=== PATIENT | female | born 2000 | race Caucasian/White ===

== ENCOUNTER 2020-12-18 12:23 | Emergency (ER) | payer OTHER, SELFPAY ==
--- NOTE | 2020-12-18 12:31 | ED.URI ---
HPI - URI/Sore Throat General Chief Complaint: Upper Respiratory Infection Stated Complaint: Body Aches,Headache,Sore Throat,Fever Time Seen by Provider: 12/18/20 12:31 Source: patient and RN notes reviewed Mode of arrival: ambulatory Limitations: no limitations History of Present Illness HPI Narrative: 20-year-old female presents to the [facility] with complaints of body aches, headache, sore throat and fever. Reports a sore throat that started yesterday. Is concerned for strep. Has had fatigue. States that she felt feverish last night but did not check her temperature. Had a 99 temperature this morning. No chest pain or abdominal pain. Denies any shortness of breath. Has taken NyQuil/DayQuil MD elicited complaint: sore throat Related Data Home Medications Medication Instructions Recorded Confirmed norethindrone-e.estradiol-iron 1 tablet PO DAILY 12/18/20 12/18/20 [Aurovela Fe 1-20 (28)] Allergies Allergy/AdvReac Type Severity Reaction Status Date / Time No Known Allergies Allergy Verified 07/15/16 15:41 Review of Systems Review of Systems: All systems reviewed & are unremarkable except as noted in HPI and below Constitutional: Constitutional: Reports as per HPI and Reports chills Eyes: Eyes: Reports no additional eye complaints ENT: Reports as per HPI and Reports sore throat Cardiovascular: Cardiovascular: Reports no additional cardiovascular complaints and Denies chest pain Respiratory: Respiratory: Reports no additional respiratory complaints, Denies cough and Denies dyspnea Gastrointestinal: Gastrointestinal: Reports no additional gastrointestinal complaints, Denies abdominal pain, Denies nausea and Denies vomiting Musculoskeletal: Musculoskeletal: Reports as per HPI and Reports myalgias Integumentary/Breasts: Skin/Breast: Reports system reviewed and no additional complaints, except as docu Neurologic: Reports system reviewed and no additional complaints, except as documented Psychiatric: Psychiatric: Reports no additional psychiatric complaints Allergic/Immunologic: Allergic/Immunologic: Reports no additional allergic/immunologic complaints PMFSH Past Medical History Medical History (Updated 12/18/20 @ 19:11 by Umm Renae) Patient denies significant medical history Surgical History Surgical History (Updated 12/18/20 @ 19:11 by Umm Renae) No significant past surgical history Social History Social History (Updated 12/18/20 @ 19:12 by Umm Renae) Smoking status: Never smoker Alcohol intake: never Occupation/Education: student Gender identity (if verbalized by the patient): Female Comments At the time of my signature, I reviewed and agree with the nursing past medical, surgical, social, and family history. There is no relevant family history pertinent to the patient complaint. Exam Const: General: healthy appearing, no acute distress and alert Nutritional Appearance: well nourished Orientation/consciousness: patient oriented x3 Limitations: no limitations HENMT: Head: normal to inspection Ears: external ears normal, TM's normal bilaterally and EAC's normal Eyes: Conjunctivae: conjunctivae normal Pupils: Equal, round and reactive pupils present Neck: Neck: normal visual inspection, no lymphadenopathy and no meningeal signs Chest: Chest palpation & inspection: normal inspection of the chest Resp: Effort & Inspection: normal respiratory effort and no use of accessory muscles Auscultation: clear to auscultation bilaterally, no crackles, no rales, no rhonchi and no wheezes Cardio: Rate: regular rate Rhythm: regular rhythm GI: GI Palp: Yes Soft to palpation and No Tenderness to palpation present (GI) : General: Yes no CVA tenderness Back/Spine/Pelvis: Back: no CVA tenderness Skin: General skin exam: normal color Rashes: no rashes Wounds: no wounds Neuro: General: patient oriented x3, moves all extremities, no meningeal signs and no foca
[2020-12-18 12:32] VITALS: BP 126/85; PULSE 104; RESP 18; TEMP 36.2; O2SAT 99
== END 2020-12-18 13:15 | disposition home or self-care (01) ==
PROVIDERS: Emergency Provider Nurse Practitioner; PCP Nurse Practitioner Family
DX: B34.9 Viral infection, unspecified (principal); J02.9 Acute pharyngitis, unspecified
CPT/HCPCS: 87081; 87880; 99213; G0463

== ENCOUNTER 2025-03-15 09:55 | Emergency (ER) | payer OTHER, SELFPAY ==
[2025-03-15 10:02] VITALS: BP 102/59; PULSE 122; RESP 18; TEMP 37.2; O2SAT 100
--- OUTSIDE RECORDS SUMMARY | 2025-03-15 10:21 | XMS_ITS | Data Portability ---
Author Organization [employer] , [facility] Address [address] [place] [address] Assessment Encounter Date Assessment Date Assessment LastModified by Organization Details LastModified Time 09/15/2024 09/15/2024 Pt reports regular periods occurring every 26-28 days. Reports she previously had heavy/long periods with clotting. Now they last 4 days. She also has the following symptoms: low energy, brain fog, difficulty losing weight, acne, and sugar cravings, and no sex drive. She says she lost about 35 pounds and gained 10 within 2 months. She states she's been having these symptoms since about 2021. She does take Vitamin D daily. Will do additional blood work. Will follow up in 3 months. [email or web address] Not available 09/15/2024 16:45:13 Plan of Treatment Reminders Order Date Submit Date Provider Last Modified By Organization Details Last Modified Time Details Appointments None recorded . Lab testoste brittany, total, serum 025 09/16/19 [facility], [address] [facility], [place], [address], 5 00:07:49 HbA1c (hemoglo bin A1c), blood 025 09/16/[address] [facility], [address] [place] [address], [address], 5 00:07:49 TSH + free T4, serum 025 09/16/[address] [facility], [address] [place] [address], [address], 12:29:59 Referral None recorded . Procedures None recorded . Surgeries None recorded . Imaging None recorded . Medication Orders Ocella 3 mg-0.03 mg tablet 025 09/16/19 [id number], [address], [place], [id number], 16:44:52 Patient TargetsNo targets recorded. Patient InstructionsNo instructions recorded. Reason for Referral None Reported. Results Created Date Observation Date Name Description Value Unit Range Abnormal Flag Note LastModifiedBy Organization Detail LastModifiedTime 09/21/1909/19/2024 HEMOG LOBIN A1C hemoglobin A1C TNP TEST NOT PERFO RMED No laven kayleen-t op tube recei miguelina. Not Available [employer] [facility] [address] [place], [address], 09/20/2024 00:07:48 09/21/1909/19/2024 TESTO STERO NE, TOTAL , MS testosterone , total, MS 20 NG/dL 2-45 For addit ional infor axel loza e refer to https ://ed ucati on.qu [employer]. [employer]/f aq/To Rd engel LCMSM S (This link is being provi ded for infor matio nal/e ducat ional purpo ses only. ) (Note ) This test was devel oped and its gonsalo tical perfo rmanc e demi cteri stics have been deter mined by [employer] callie. It has not been clear ed or appro miguelina by the FDA. This assay has been valid ated pursu ant to the CLIA regul ation s and is used for clini shivani purpo ses. F med fusio n [address] [facility] [address] [facility] [address] [phone] Carlie Vines MD, PhD NO COLLE CTION DATE RECEI MIGUELINA. WE HAVE USED THE DATE THE SPECI MEN WAS RECEI MIGUELINA BY THIS LABOR ATORY THE COLLE CTION DATE. IF THIS IS INCOR RECT, PLEAS E CONTA CT CLIEN T SERVI MAYELIN. PHONE NUMBE R: [phone] Not Available [employer] [facility] [address], [place], [address], 09/20/2024 00:07:49 09/16/1909/16/2024 HEMOG LOBIN A1C hemoglobin A1C 4.2 % <5.7 normal The refer ence range for HbA1c is indic ated in the table below . Sugge sted Diagn osis =6.5% Consi stent with diabe tricia 5.7 6.4% Consi stent with incre ased risk for diabe tricia (pred iabet ic) <5.7% Consi stent with the absen ce of diabe tricia Not Available [place], [address], 09/16/2024 11:28:41 09/16/1909/16/2024 TSH W/ T4, FREE TSH 1.94 mIU/L 0.55 - 4.78 normal Refer ence Range Femal e aged 18-Ad ult: 0.55- 4.78 Pregn miri Refer ence Range s First Trime ster 0.26- 2.66 Secon d Trime ster 0.55- 2.73 Third Trime ster 0.43- 2.91 Not Available [place], [address], 09/16/2024 12:29:59 09/16/1909/16/2024 TSH W/ T4, FREE T4, free 1.32 NG/dL 0.89 - 1.76 normal Not Available [place], [address], 09/16/2024 12:29:59 Result Notes None recorded. Procedures Surgical History Date Name Laterality Status Provider Name and Address Organization Details Recorded Time 11/22/2020 Date of Last Pap Smear completed [facility] 09/15/2024 16:05:07 Imaging Results None recorded. Procedure Notes None recorded. Medical Equipment None Reported. Allergies Allergen ID Allergen Name Allergen Category Reaction Reaction Severity Criticality Documentation Date Start Date Code Code System Note Provider Name and Address Organization Details Recorded Time 220738 amoxicill in medicatio n Not available Not available Not available 09/15/20242024 723 [facility] [employer] 16:08:26 Medications Name Sig Start Date Stop Date Status Note LastModified by Organization Details LastModified Time venlafaxine ER 37.5 mg capsule,exte nded release 24 hr TAKE 1 CAPSULE BY MOUTH EVERY DAY WITH FOOD 09/15 completed Not Available Not Available Not Available drospirenone 3 mg-ethinyl estradiol 0.03 mg tablet TAKE 1 TABLET BY MOUTH EVERY DAY active Not Available Not Available No t Available Vitals Date Recorded Body height Body mass index (BMI) Body weight Body temperature Systolic And Diastolic Provider Name and Address Organization Details Last Updated DateTime 09/15/2024 160.02 cm 35.1 kg/m2 20507.0 1 g 98.6 [degF] 126/68 mm[Hg] Pineda Leija [facility] [employer] 16:07:59 Social History Question Answer Notes LastModified by Organizat ion Details LastModified Time Tobacco Smoking Status Never Smoker Pineda Leija [place], [place] [employer] 09/15/2024 16:05:08 If You Are , What Was Your Level Of Alcohol Consumption Prior To ? None [email or web address] Information not available 09/15/2024 Are You Blind Or Do You Have Difficulty Seeing? No [email or web address] Information not available 09/15/2024 Are You Deaf Or Do You Have Serious Difficulty Hearing? No [email or web address] Information not available 09/15/2024 What Type Of Diet Are You Following? REGULAR [email or web address] Information not available 09/15/2024 What Is The Highest Grade Or Level Of School You Have Completed Or The Highest Degree You Have Received? UA11055-1 [email or web address] Information not available 09/15/2024 How Many Children Do You Have? 0 [email or web address] Information not available 09/15/2024 What Is Your Relationship Status? Other [email or web address] Information not available 09/15/2024 Are You Sexually Active? Yes Information not available 09/15/2024 Sex: Unknown Functional Status Question Answer Note LastModified by Organizat ion Details LastModified Time Do you use any illicit or recreational drugs? No [email or web address] Information not available 09/15/2024 What is your level of alcohol consumption? None Information not available 09/15/2024 Are you currently employed? Yes [email or web address] Information not available 09/15/2024 What is your exercise level? Moderate [email or web address] Information not available 09/15/2024 Mental Status None recorded. Family History Relationship Description Onset Age of this Age Resolved Age Notes LastModified by Organization Details LastModified Time Mother Hyperthyroid ism [email or web address] Not available 09/15 16:05:07 Maternal Grandmother Malignant neoplasm of breast Not available 09/15 16:05:07 Sister Hyperthyroid ism [email or web address] Not available 09/15 16:05:07 Medical History Condition Response Other Cancer N High Blood Pressure N Colon Cancer N Cytomegalovirus N Hyperthyroidism N MRSA N Blood Transfusion N Herpes (HSV) N Breast Cancer N Lung Cancer N Hypothyroidism N Depression N Incontinence N Panic Attacks N Neurological Disorder N Deep Vein Thrombosis N Anxiety Disorder N Autoimmune disease N Arthritis N Shingles N Tuberculosis/Positive PPD N Infertility N Polycystic Ovarian Syndrome N Cervical Cancer N Chlamydia N Hematuria N Stroke N Varicosities N Seasonal allergies N Crohn's Disease N Alzheimer's/Dementia N COPD/Emphysema N Endometriosis N HPV/Genital Warts N IBS (Irritable Bowel Syndrome) N History of Abnormal Pap N High Cholesterol N Liver Disease N Kidney Infection N Fibromyalgia N Ulcer N Kidney Disease N HIV N Gallbladder disease N Von Willebrand disease N Sickle Cell Disease/Trait N ADD/ADHD N Eating Disorder N Diabetes Mellitus (non-insulin dependent ) N Anemia N Ovarian Problems N Multiple Sclerosis N Gonorrhea N Frequent Urinary Tract infections N Osteopenia N Headaches/migraines N GERD (reflux) N Ovarian Cancer N Diabetes (insulin dependent) N Seizures/Epilepsy N Breast Problems N Fibroids N Asthma N Heart Attack N Endometrial Cancer N Lupus N Rubella N Blood Clotting Disorder N Bipolar Disorder N Diabetes Mellitus (during ) N Ulcerative Colitis N Hepatitis N Heart Disease N Pulmonary Embolism N RPR N Chicken Pox N Osteoporosis N Gynecological History Statement/Question Response Flow Heavy Date of LMP 09/13/2024 HPV Vaccine Y Duration of Flow (days) 3-4 Most Recent Mammogram Current Control Method Condoms Age at Menarche 8 Date of Last Colonoscopy Most Recent Bone Density Frequency of Cycle (Q days) 22-27 Date of Last Pap Smear 11/22/2020 Obstetrics History GPAL:G 1 P 0 0 1 0 Type Value Induced 1 Living 0 Total 1 Past Encounters Encounter ID Performer Location Encounter Start Date Encounter Closed Date Diagnosis/Indication Diagnosis SNOMED-CT Code Diagnosis ICD10 Code Diagnosis IMO Codes Diagnosis Note [id number] [facility] [address] [place] [address] 09/15/2024 15:59:16 09/15/2024 17:07:56 Cystic acne 89363088 L70.0 813 Fatigue 70417259 R53.83 61008609 Weight increased 8161489 00 R63.5 10564 Contracept adam use education 97656598 Z30.09 040191 Health Concerns Section Related Observation LastModified by Organization Detai ls LastModified Time None Recorded Concern Status LastModified by Organization Details LastModified Time None Recorded Advance Directives Directive None Recorded Payers Insurance Date Sequence Insurance Name Policy Number Policy Montoya Covered Member ID Montoya Member ID Guarantor Name 10/07/2024 1 [facility] [id number] Brooke Leung [facility] [id number] [facility] 10/07/2024 2 [facility] [id number] [facility] [id number] Brooke [place] Notes Date Note Type Note Provider Name and Address Organization Details Recorded Time 09/15/2024 text/html ROS as noted in the HPI Brooke is here to be screened for PCOS. She states she's been experiencing the following symptoms: low energy, brain fog, difficulty losing weight, acne, and sugar cravings, and no sex drive. She says she lost about 35 pounds and gained 10 within 2 months. She states she's been having these symptoms since about 2021. KELLI EDWARD [address] [place], [address], [facility] [employer] IV 09/15/2024 16:45:16 OBGyn Episode Ob Episode Information Episode Created Date Number of Fetuses Patient Bloodtype Patient rh Status Prepregnancy Weight lbs Domestic Partner Domestic Partner Phone Father Name Exchange Consultant Status 09/16/19 25 1 CLOSED Fetus Data First Name Last Name Admitted to NICU Weight (g) Sex Living Outcome Pediatric Complications Fetus ID Race Codes Race Delivery Type , Induced [id number] Meng Calculation Initial Meng Date Initial Exam Date Initial Exam Provider Initial Ultrasound Date Last Menstrual Period Date Ultra Sound Weeks Gestation 0 Eighteen To Twenty Week Meng Update Ultra Sound Date Fundal Height At Umbil Quickening Date Ultra Sound Latest Weeks Gestation Final Meng Confirmed By Final Meng Confirmed Date Final Meng Date Ultra Sound Latest Days Gestation 0 0 Menstrual History Last Menstrual Date Menses Monthly On Bcp Conception Prior Menses Frequency Hcg Plus Date Menarche Onset Age Delivery Information Delivery Date Delivery Type Labor Anesthesia Weeks Gestation Incision Type Labor Labor Length Hrs Delivered By Post Complications Tubal Sterilization Discharge Date Comments 2 Discharge Information Feeding Method Contraceptive Method Maternal HG B and HCT Levels
--- OUTSIDE RECORDS SUMMARY | 2025-03-15 10:21 | XMS_ITS | Clinical Summary ---
Author Organization [facility] Address [address] [place] [address] Care Team Providers Care Community Engagement Leader Name Role Phone Kamila Fan [facility] Primary Care Provider + Allergies No known active allergies Medications ibuprofen 600 MG tablet Take 1 tablet (600 mg total) by mouth every 8 (eight) hours as needed for Pain. 20 tablet 11/08/2020 Active Family History Medical History Relation Comments Cancer Father No Known Problems Mother Relation Status Comments Father Mother Social History Tobacco Use Types Packs/Day Years Used Date Smoking Tobacco: Never Smokeless Tobacco: Never Alcohol Use Standard Drinks/Week Comments Never 0 (1 standard drink = 0.6 oz pur e alcohol) Comments No Sex and Gender Information Value Date Recorded Sex Assigned at Not on file Legal Sex Female 4:31 PM CDT Gender Identity Not on file Sexual Orientation Not on file Last Filed Vital Signs Vital Sign Reading Time Taken Comments Blood Pressure 117/96 11/08/2020 8:49 AM CDT Pulse 68 11/08/2020 8:49 AM CDT Temperature 35.8 C (96.4 F) 11/08/2020 8:49 AM CDT Respiratory Rate 16 11/08/2020 8:49 AM CDT Oxygen Saturation 100% 11/08/2020 8:49 AM CDT Inhaled Oxygen Concentration - - Weight 92.5 kg (204 lb) 11/08/2020 8:49 AM CDT Height 160 cm (5' 3) 11/08/2020 8:49 AM CDT Body Mass Index 36.14 11/08/2020 8:49 AM CDT Plan of Treatment Health Maintenance Due Date Last Done Comments Cervical Cancer Screening Pa p Smear (Age 21 to 29) Every 3 Years 1999 Cervical Cancer Screening 1999 Annual Physical 12/10/2002 HPV Vaccines (2 - 3-dose series) 01/25/2015 12/28/2014 Hepatitis C 12/10/2017 DTaP, Tdap and Td Vaccines ( 3 - Tdap) 12/10/2018 11/20/2005, 07/28/2001 Hepatitis B Vaccines (1 of 3 - 19+ 3-dose series) 12/10/2018 COVID-19 Vaccine (1 - 2024-2 6 season) 2024 Influenza Adult (#1) 2024 Meningococcal Vaccine Aged Out 12/28/2014 No bobby cleve eligible based on patient's age to complete this topic Hepatitis A Vaccines Aged Out No long er eligible based on patient's age to complete this topic Meningococcal B Vaccine Aged Out No l onger eligible based on patient's age to complete this topic Pneumococcal Vaccine: Pediatrics (0 to 5 Years) and At-Risk Patients (6 to 49 Years) Aged Out No longer eligible b ased on patient's age to complete this topic RSV Immunizations Under 20 Months Aged Out No longer eligible b ased on patient's age to complete this topic Insurance [employer] Care Teams Community Engagement Leader Relationship Specialty Start Date End Date Kamila Fan, [employer]- [address] [place] [address] PCP - General NURSE PRACTITIONER 11/08/20
--- OUTSIDE RECORDS SUMMARY | 2025-03-15 10:21 | XMS_ITS | Data Portability ---
Author Organization [facility] [employer], Main Office Address [address] [place] [address] Care Team Providers Care Sql Developer Name Role Phone KANE PONCE Primary Care Provider Assessment Encounter Date Assessment Date Assessment LastModified by Organization Details LastModified Time 03/27/2023 03/27/2023 22 yo F with - WELL ADULT VISIT - FATIGUE - DEPRESSION - OBESITY I D/w pt in detail about her findings and further plan of care. Will do routine labs. Will refer pt to Psych. Diet and exercise explained in detail. Educated about different options for her. Safe sex education given. HM: WWE - 2020, normal as per pt. Cont f/u with Gyne as per schedule. Flu, Tdap, Gardasil - At pharmacy/HD. F/u in 2 weeks. Annual labs in 04/16. [email or web address] Not available 03/27/2023 17:10:35 04/09/2023 04/09/2023 22 yo F with - VIT D DEFICIENCY - FATIGUE - DEPRESSION - OBESITY I Annual labs: 04/04/23. Wt: 194(04/09/23) D/w pt in detail about her findings, recent labs and further plan of care. Meds as directed. Diet and exercise explained in detail. Educated about different options for her. Safe sex education given. Pt declined to try any SSRI/SNRI from me. Wants to wait until seen by Psych. F/u with Psych as per schedule. HM: WWE - 2020, normal as per pt. Cont f/u with Gyne as per schedule. Flu, Tdap, Gardasil - At pharmacy/HD. F/u in 1 month. Annual labs in 04/16. [email or web address] Not available 04/09/2023 16:52:19 Plan of Treatment Reminders Order Date Submit Date Provider Last Modified By Organization Details Last Modified Time Details Appointments None recorded. Lab HbA1c (hemoglobin A1c), blood [address] (Lab), [address] [place], [address], 4 10:26:47 CBC w/ auto diff 2023 024 [facility] (Lab), [address] [place], [address], 4 20:05:12 CMP, serum or plasma 2023 024 [facility] (Lab), [address] [place], [address], 4 20:57:18 lipid panel, serum 2023 024 [facility] (Lab), [address] [place], [address], 4 20:57:42 TSH, serum, reflex free T4 [address] (Lab), [address] [place], [address], 4 10:26:34 urinalysis complete, reflex culture [address] (Lab), [address] [place], [address], 4 08:37:30 vitamin D, 25-hydroxy, total, serum [address] (Lab), [address] [place], [address], 4 10:27:08 vitamin B12 + folate, serum or blood [address] (Lab), [address] [place], [address], 10:27:22 magnesium, serum or plasma 2023 024 [facility] ([facility] [address] [place], [address], 20:57:43 Referral psychiatris t referral - Please call patient to schedule appointment . 2023 024 [email or web address] Guevara Oneill MD, [address], [facility] [address], [place], [address], 17:47:58 Procedures None recorded. Surgeries None recorded. Imaging None recorded. Medication Orders phentermine 15 mg capsule 2023 024 [facility] #[id number], [address] [place] [address], [id number], 16:48:09 ergocalcife rol (vitamin D2) 1,250 mcg (50,000 unit) capsule 2023 024 [email or web address] [id number], [address] [place] [address], [id number], 16:50:35 Patient TargetsNo targets recorded. Patient Instructions Encounter Date Encounter Id Patient Instructions Last Modified By Organization Details Last Modified Time 03/27/2023 [id number] Starting a Weight-Loss Plan: Care Instructions [email or web address] Not available 03/27/2023 16:52:43 learning about obesity Not available 03/27/2023 16:52:43 04/09/2023 [id number] Starting a Weight-Loss Plan: Care Instructions [email or web address] Not available 04/09/2023 16:45:40 learning about obesity [email or web address] Not available 04/09/2023 16:45:40 Reason for Referral Psychiatrist Referral for De pressive disorder Please call patient to schedule appointment. Referring Physician: Kane Ponce, Family Medicine, Encounter Date: 03/27/2023 Results Created Date Observation Date Name Description Value Unit Range Abnormal Flag Note LastModifiedBy Organization Detail LastModifiedTime 04/04/19 24 04/04/2023 URINA LYSIS COMPL ETE/I RIS W/RFX color LIGHT- YELLOW Not Available [facility] (Lab) [address] [place], [address], 04/04/2023 20:03:16 04/04/19 24 04/04/2023 URINA LYSIS COMPL ETE/I RIS W/RFX appear TURBID abnormal Not Available [facility] (Lab) [address] [place], [address], 04/04/2023 20:03:16 04/04/19 24 04/04/2023 URINA LYSIS COMPL ETE/I RIS W/RFX specific gravity 1.005 1.001- 1.030 Not Available [facility] (Lab) [address] [place], [address], 04/04/2023 20:03:16 04/04/19 24 04/04/2023 URINA LYSIS COMPL ETE/I RIS W/RFX pH 5.0 pH_un its 5.0-9. 0 Not Available [facility] (Lab) [address] [place], [address], 04/04/2023 20:03:16 04/04/19 24 04/04/2023 URINA LYSIS COMPL ETE/I RIS W/RFX leukocytes NEGATI VE lauro/u L negati ve- Not Available [facility] (Lab) [address] [place], [address], 04/04/2023 20:03:16 04/04/19 24 04/04/2023 URINA LYSIS COMPL ETE/I RIS W/RFX nitrite NEGATI VE negati ve- Not Available [facility] (Lab) [address] [place], [address], 04/04/2023 20:03:16 04/04/19 24 04/04/2023 URINA LYSIS COMPL ETE/I RIS W/RFX protein NEGATI VE mg/dL negati ve- Not Available [facility] (Lab) [address] [place], [address], 04/04/2023 20:03:16 04/04/19 24 04/04/2023 URINA LYSIS COMPL ETE/I RIS W/RFX glucose NORMAL mg/dL normal - Not Available [facility] (Lab) [address] [place], [address], 04/04/2023 20:03:16 04/04/19 24 04/04/2023 URINA LYSIS COMPL ETE/I RIS W/RFX ketones NEGATI VE mg/dL negati ve- Not Available [facility] (Lab) [address] [place], [address], 04/04/2023 20:03:16 04/04/19 24 04/04/2023 URINA LYSIS COMPL ETE/I RIS W/RFX urobilinogen NORMAL mg/dL normal - Not Available [facility] (Lab) [address] [place], [address], 04/04/2023 20:03:16 04/04/19 24 04/04/2023 URINA LYSIS COMPL ETE/I RIS W/RFX bilirubin NEGATI VE mg/dL negati ve- Not Available [facility] (Lab) [address] [place], [address], 04/04/2023 20:03:16 04/04/19 24 04/04/2023 URINA LYSIS COMPL ETE/I RIS W/RFX blood 0.03 mg/dL negati ve- abnormal Not Available [facility] (Lab) [address] [place], [address], 04/04/2023 20:03:16 04/04/19 24 04/04/2023 URINA LYSIS COMPL ETE/I RIS W/RFX white blood cells 0-8 /i??h pfi?? 0-8 Not Available [facility] (Lab) [address] [place], [address], 04/04/2023 20:03:16 04/04/19 24 04/04/2023 URINA LYSIS COMPL ETE/I RIS W/RFX red blood cells 0-4 /i??h pfi?? 0-4 Not Available [facility] (Lab) [address] [facility] [place], [address], 04/04/2023 20:03:16 04/04/19 24 04/04/2023 URINA LYSIS COMPL ETE/I RIS W/RFX bacteria NONE Not Available [facility] (Lab) [address] [place], [address], 04/04/2023 20:03:16 04/04/19 24 04/04/2023 URINA LYSIS COMPL ETE/I RIS W/RFX mucous OCCASI ONAL /i??l pfi?? abnormal Not Available [facility] (Lab) [address] [place], [address], 04/04/2023 20:03:16 04/04/19 24 04/04/2023 URINA LYSIS COMPL ETE/I RIS W/RFX squamous epithelial MANY /i??l pfi?? abnormal Not Available [facility] (Lab) [address] [place], [address], 04/04/2023 20:03:16 04/04/19 24 04/04/2023 CBC/C OMPLE TE BLD COUNT W/DIF F white blood cells 6.8 x10'3 /uL 4.2-10 .8 Not Available [facility] (Lab) [address] [place], [address], 04/04/2023 20:05:12 04/04/19 24 04/04/2023 CBC/C OMPLE TE BLD COUNT W/DIF F red blood cells 4.99 x10'6 /uL 3.80-5 .20 Not Available [facility] (Lab) [address] [place], [address], 04/04/2023 20:05:12 04/04/19 24 04/04/2023 CBC/C OMPLE TE BLD COUNT W/DIF F hemoglobin 14.8 g/dL 12.0-1 5.6 Not Available [facility] (Lab) [address] [place], [address], 04/04/2023 20:05:12 04/04/19 24 04/04/2023 CBC/C OMPLE TE BLD COUNT W/DIF F hematocrit 42.9 % 35.7-4 5.7 Not Available [facility] (Lab) [address] [place], [address], 04/04/2023 20:05:12 04/04/19 24 04/04/2023 CBC/C OMPLE TE BLD COUNT W/DIF F mean red cell volume 86.0 fL 82.0-9 9.0 Not Available [facility] (Lab) [address] [place], [address], 04/04/2023 20:05:12 04/04/19 24 04/04/2023 CBC/C OMPLE TE BLD COUNT W/DIF F mean red cell hemoglobin 29.7 pg 27.0-3 3.0 Not Available [facility] (Lab) [address] [place], [address], 04/04/2023 20:05:12 04/04/19 24 04/04/2023 CBC/C OMPLE TE BLD COUNT W/DIF F mean RBC HGB concentratio n 34.5 g/dL 31.0-3 6.0 Not Available [facility] (Lab) [address] [place], [address], 04/04/2023 20:05:12 04/04/19 24 04/04/2023 CBC/C OMPLE TE BLD COUNT W/DIF F red cell distribution width 12.8 % 11.8-1 5.5 Not Available [facility] (Lab) [address] [place], [address], 04/04/2023 20:05:12 04/04/19 24 04/04/2023 CBC/C OMPLE TE BLD COUNT W/DIF F platelets 274 x10'3 /uL 150-40 0 Not Available [facility] (Lab) [address] [place], [address], 04/04/2023 20:05:12 04/04/19 24 04/04/2023 CBC/C OMPLE TE BLD COUNT W/DIF F mean platelet volume 12.3 fL 9.0-12 .4 Not Available [facility] (Lab) [address] [place], [address], 04/04/2023 20:05:12 04/04/19 24 04/04/2023 CBC/C OMPLE TE BLD COUNT W/DIF F neutrophils 70.7 % 39.0-7 2.0 Not Available [facility] (Lab) [address] [place], [address], 04/04/2023 20:05:12 04/04/19 24 04/04/2023 CBC/C OMPLE TE BLD COUNT W/DIF F lymphocytes 21.1 % 16.0-4 7.0 Not Available [facility] (Lab) [address] [place], [address], 04/04/2023 20:05:12 04/04/19 24 04/04/2023 CBC/C OMPLE TE BLD COUNT W/DIF F monocytes 6.9 % 5.0-12 .0 Not Available [facility] (Lab) [address] [place], [address], 04/04/2023 20:05:12 04/04/19 24 04/04/2023 CBC/C OMPLE TE BLD COUNT W/DIF F eosinophils 0.6 % 1.0-7. 0 low Not Available [facility] (Lab) [address] [place], [address], 04/04/2023 20:05:12 04/04/19 24 04/04/2023 CBC/C OMPLE TE BLD COUNT W/DIF F basophils 0.3 % 0.0-2. 0 Not Available [facility] (Lab) [address] [place], [address], 04/04/2023 20:05:12 04/04/19 24 04/04/2023 CBC/C OMPLE TE BLD COUNT W/DIF F immature granulocytes 0.4 % 0.00-0 .50 Not Available [facility] (Lab) [address] [place], [address], 04/04/2023 20:05:12 04/04/19 24 04/04/2023 CBC/C OMPLE TE BLD COUNT W/DIF F neutrophils, absolute count 4.83 x10'3 /uL 1.5-8. 0 Not Available [facility] (Lab) [address] [place], [address], 04/04/2023 20:05:12 04/04/19 24 04/04/2023 CBC/C OMPLE TE BLD COUNT W/DIF F lymphocytes, absolute count 1.44 x10'3 /uL 1.07-3 .43 Not Available [facility] (Lab) [address] [place], [address], 04/04/2023 20:05:12 04/04/19 24 04/04/2023 CBC/C OMPLE TE BLD COUNT W/DIF F monocytes, absolute count 0.47 x10'3 /uL 0.29-0 .99 Not Available [facility] (Lab) [address] [place], [address], 04/04/2023 20:05:12 04/04/19 24 04/04/2023 CBC/C OMPLE TE BLD COUNT W/DIF F eosinophils, absolute count 0.04 x10'3 /uL 0.02-0 .53 Not Available [facility] (Lab) [address] [place], [address], 04/04/2023 20:05:12 04/04/19 24 04/04/2023 CBC/C OMPLE TE BLD COUNT W/DIF F basophils, absolute count 0.02 x10'3 /uL 0.01-0 .08 Not Available [facility] (Lab) [address] [place], [address], 04/04/2023 20:05:12 04/04/19 24 04/04/2023 CBC/C OMPLE TE BLD COUNT W/DIF F immature granulocytes ,absolute 0.03 x10'3 /uL 0.00-0 .05 Not Available [facility] (Lab) [address] [place], [address], 04/04/2023 20:05:12 04/04/19 24 04/04/2023 CBC/C OMPLE TE BLD COUNT W/DIF F nucleated red blood cells 0.0 % -0 Not Available [facility] (Lab) [address] [place], [address], 04/04/2023 20:05:12 04/04/19 24 04/04/2023 CBC/C OMPLE TE BLD COUNT W/DIF F NRBC# 0.00 x10'3 /uL Not Available [facility] (Lab) [address] [place], [address], 04/04/2023 20:05:12 04/04/19 24 04/04/2023 VITAM IN D 25-HY DROXY [id number] 22.5 NG/mL 30-100 low Vitam in D Statu s: Defic ient: <20 ng/mL Insuf ficie nt: 20-29 ng/mL Suffi cient : 30-10 0 ng/mL Not Available [facility] (Lab) [address] [place], [address], 04/04/2023 20:25:19 04/04/19 24 04/04/2023 TSH W/REF MARCOS FT4 TSH with reflex free T4 1.980 uIU/m L 0.465- 4.680 Not Available [facility] (Lab) [address] [place], [address], 04/04/2023 20:44:26 04/04/19 24 04/04/2023 COMPR EHENS IRMA METAB OLIC PANEL sodium 136 mmol/ L 137-14 5 low Not Available [facility] (Lab) [address] [place], [address], 04/04/2023 20:57:39 04/04/19 24 04/04/2023 COMPR EHENS IRMA METAB OLIC PANEL potassium 3.9 mmol/ L 3.5-5. 1 Not Available [facility] (Lab) [address] [place], [address], 04/04/2023 20:57:39 04/04/19 24 04/04/2023 COMPR EHENS IRMA METAB OLIC PANEL chloride 107 mmol/ L 98-107 Not Available [facility] (Lab) [address] [place], [address], 04/04/2023 20:57:39 04/04/19 24 04/04/2023 COMPR EHENS IRMA METAB OLIC PANEL carbon dioxide 20 mmol/ L 22-30 low Not Available [facility] (Lab) [address] [place], [address], 04/04/2023 20:57:39 04/04/19 24 04/04/2023 COMPR EHENS IRMA METAB OLIC PANEL anion gap 12.9 mmol/ L 14-22 low Not Available [facility] (Lab) [address] [place], [address], 04/04/2023 20:57:39 04/04/19 24 04/04/2023 COMPR EHENS IRMA METAB OLIC PANEL glucose 81 mg/dL 70-99 Not Available [facility] (Lab) [address] [place], [address], 04/04/2023 20:57:39 04/04/19 24 04/04/2023 COMPR EHENS IRMA METAB OLIC PANEL BUN 10 mg/dL 8-19 Not Available [facility] (Lab) [address] [place], [address], 04/04/2023 20:57:39 04/04/19 24 04/04/2023 COMPR EHENS IRMA METAB OLIC PANEL creatinine 0.64 mg/dL 0.66-1 .25 low Not Available [facility] (Lab) [address] [place], [address], 04/04/2023 20:57:39 04/04/19 24 04/04/2023 COMPR EHENS IRMA METAB OLIC PANEL GFR >60 Refer ence Range : [place] ge GFR Healt hy Adult : >60 mL/mi n/1.7 3 m2 Chron ic Kidne y Disea se: 15-60 mL/mi n/1.7 3 m2 Kidne y Failu re: <15/m L/min /1.73 m2 www.n iddk. nih.g ov The MDRD study equat ion has not been valid ated in child yuliana <18 years of age; pregn ant women ; the elder ly >85 years of age; or in some racia l or ethni c subgr oups, such as Hispa nics. Outsi de the valid ated jewel eters , estim ated GFR is less accur ate, requi ring clini shivani judgm ent on a case- by-ca se basis . Clini shivani inter preta tion for other races and ages must be made by the clini kyle. The MDRD study equat ion has not been valid ated for the evalu ation of serum creat inine relat ed to nutri deven l statu s or medic ation usage . For perso ns <18 years of age, a pedia tric GFR calcu lator is avail able on the F websi te: https ://aysha w.francisco juan.o rg/pr ofess ional s/kdo qi/gf r_cal culat or Not Available [facility] (Lab) [address] [place], [address], 04/04/2023 20:57:39 04/04/19 24 04/04/2023 COMPR EHENS IRMA METAB OLIC PANEL alkaline phosphatase 72 U/L 38-126 Not Available [facility] (Lab) [address] [place], [address], 04/04/2023 20:57:39 04/04/19 24 04/04/2023 COMPR EHENS IRMA METAB OLIC PANEL alanine aminotransfe rase 25 U/L 0-35 Not Available [facility] (Lab) [address] [place], [address], 04/04/2023 20:57:39 04/04/19 24 04/04/2023 COMPR EHENS IRMA METAB OLIC PANEL aspartate aminotransfe rase 24 U/L 15-37 Not Available [facility] (Lab) [address] [place], [address], 04/04/2023 20:57:39 04/04/19 24 04/04/2023 COMPR EHENS IRMA METAB OLIC PANEL bilirubin, total 1.30 mg/dL 0.20-1 .30 Not Available [facility] (Lab) [address] [place], [address], 04/04/2023 20:57:39 04/04/19 24 04/04/2023 COMPR EHENS IRMA METAB OLIC PANEL calcium 10.1 mg/dL 8.4-10 .2 Not Available [facility] (Lab) [address] [place], [address], 04/04/2023 20:57:39 04/04/19 24 04/04/2023 COMPR EHENS IRMA METAB OLIC PANEL total protein 8.0 g/dL 6.3-8. 2 Not Available [facility] (Lab) [address] [place], [address], 04/04/2023 20:57:39 04/04/19 24 04/04/2023 COMPR EHENS IRMA METAB OLIC PANEL albumin 4.7 g/dL 3.4-5. 0 Not Available [facility] (Lab) [address] [place], [address], 04/04/2023 20:57:39 04/04/19 24 04/04/2023 COMPR EHENS IRMA METAB OLIC PANEL globulin 3.3 g/dL 2.6-4. 2 Not Available [facility] (Lab) [address] [place], [address], 04/04/2023 20:57:39 04/04/19 24 04/04/2023 COMPR EHENS IRMA METAB OLIC PANEL A/G ratio 1.4 ratio 1.0-2. 0 Not Available [facility] (Lab) [address] [place], [address], 04/04/2023 20:57:39 04/04/19 24 04/04/2023 LIPID PANEL cholesterol 164 mg/dL 140-19 9 NIH DORA NSUS RECOM MENDA TION FOR ADY STERO L: ADULT CHILD LOW RISK: <200 <170 BORDE RLINE : <200- 239 ----- HIGH RISK: >240 >200 Not Available [facility] (Lab) [address] [place], [address], 04/04/2023 20:57:41 04/04/19 24 04/04/2023 LIPID PANEL triglyceride s 144 mg/dL 0-150 NIH DORA NSUS REPOR T RECOM MENDA TION FOR TRIGL YCERI PASQUALE: ADULT CHILD LOW RISK: <150 ----- BODER LINE: 150-1 99 ----- HIGH RISK: >200 ----- Not Available [facility] (Lab) [address] [place], [address], 04/04/2023 20:57:41 04/04/19 24 04/04/2023 LIPID PANEL HDL cholesterol 45 mg/dL 40- Not Available [facility] (Lab) [address] [place], [address], 04/04/2023 20:57:41 04/04/19 24 04/04/2023 LIPID PANEL LDL cholesterol, calculated 90 mg/dL 0-130 NIH DORA NSUS REPOR T RECOM MENDA TIONS FOR LDL: ADULT CHILD LOW RISK <130 <110 (OPTI MAL LDL) <100 ----- BORDE RLINE : 130-1 59 ----- HIGH RISK: >160 >130 A TRIGL YCERI DE RESUL T >400 INVAL IDATE S THE CALCU LATIO N FOR LDL FRACT IONAT ION - THE LDL RESUL T WILL NOT BE REPOR HEMALATHA. Not Available [facility] (Lab) [address] [place], [address], 04/04/2023 20:57:41 04/04/19 24 04/04/2023 MAGNE SIUM magnesium 2.0 mg/dL 1.6-2. 3 Not Available [facility] (Lab) [address] [place], [address], 04/04/2023 20:57:43 04/04/19 24 04/04/2023 HEMOG LOBIN A1C HA1C 4.0 % 4.0-6. 0 Diabe tricia Scree claudine Crite marc: <5.7% Consi stent with absen ce of diabe tricia 5.7-6 .4% Consi stent with incre ased risk for diabe tricia (pred iabet es) >OR=6 .5% Consi stent with diabe tricia REFER ENCE: Diabe tricia Care 2016, 39(Collins ppl.1 ):s13 -s22 Not Available [facility] (Lab) [address] [place], [address], 04/04/2023 21:09:48 04/04/19 24 04/04/2023 VITAM IN B12 (RORY ALISSON ) vb12 352 pg/mL 239-93 1 Not Available [facility] (Lab) [address] [place], [address], 04/04/2023 21:14:58 04/04/19 24 04/04/2023 FOLAT E, SERUM /PLAS MA folate 6.49 NG/mL 2.76-2 0.0 Not Available [facility] (Lab) [address] [place], [address], 04/04/2023 21:15:00 Result Notes None recorded. Problems Name Problem SNOMED Code Status Onset Date Resolution Date Notes Provider Name and Address Organization Details Recorded Time Mixed anxiety and depressive disorder 970978959 Active 2019 Not Available [employer] 3 08:09:38 Uses oral contraception 3633311 Active 2019 Not Available [employer] 3 08:09:39 Gynecologic examination Active 2021 Not Available [employer] 3 08:09:39 Skin lesion 41496265 Active 2021 Not Available [employer] 3 08:09:39 Obesity 056780791 Active 2023 Kane Ponce MD [address] [place] [address], [place], [address] , [employer] 4 16:48:05 Fatigue 07433781 Active 2023 Kane Ponce MD [address], [place], [address] , [employer] [facility] [employer] 4 16:48:22 Depressive disorder 82358678 Active 2023 Kane Ponce MD [address], [place], [address] , [facility] [employer] [facility] 4 16:48:46 Vitamin D deficiency 39623512 Active 2023 Kane Ponce MD [address], [place], [address] , [facility] [employer] [facility] 4 16:38:57 Problem Notes None recorded. Medical Equipment None Reported. Medications Name Sig Start Date Stop Date Status Note LastModified by Organization Details LastModified Time cyclobenzap rine 10 mg tablet Take 1 tablet 3 times a day by oral route as needed. 03/27 completed Not Available Not Available Not Available azithromyci n 250 mg tablet TK UTD 09/22 completed Not Available Not Available Not Available ondansetron HCl 4 mg tablet TK 1 T PO Q 8 H PRN N 09/22 completed Not Available Not Available Not Available phentermine 15 mg capsule TAKE 1 CAPSULE BY MOUTH EVERY DAY IN THE MORNING active Not Available Not Available No t Available triamcinolo ne acetonide 0.1 % topical cream APPLY A THIN LAYER TO THE AFFECTED AREA(S) BY TOPICAL ROUTE 2 TIMES PER DAY active Not Available Not Available No t Available promethazin e 25 mg tablet TAKE 1 TABLET BY MOUTH EVERY 4 TO 6 HOURS NEEDED FOR NAUSEA 08/11 completed Not Available Not Available Not Available diclofenac sodium 75 mg tablet,allison yed release Take 1 tablet twice a day by oral route as needed. 03/27 completed Not Available Not Available Not Available ergocalcife rol (vitamin D2) 1,250 mcg (50,000 unit) capsule TAKE 1 CAPSULE BY MOUTH EVERY WEEK DIRECTED active Not Available Not Available No t Available ibuprofen 600 mg tablet 03/27 completed Not Available Not Available Not Available oxycodone-a cetaminophe n 7.5 mg-325 mg tablet 09/22 completed Not Available Not Available Not Available sertraline 50 mg tablet TK 1 T PO D FOR 2 WKS THEN TK 2 TS PO D active Not Available Not Available No t Available escitalopra m 10 mg tablet TAKE 1 TABLET BY MOUTH EVERY DAY 08/11 completed Not Available Not Available Not Available Tri-Sprinte c (28) 0.18 mg(7)/0.215 mg(7)/0.25 mg(7)-0.035 mg tablet TK 1 T PO QD active Not Available Not Available No t Available Blisovi Fe 04/12 (28) 1 mg-20 mcg (21)/75 mg (7) tablet TAKE 1 TABLET BY MOUTH EVERY DAY active Not Available Not Available No t Available Fluzone Quad (PF) 60 mcg (15 mcg x 4)/0.5 mL IM syringe PHARMACIS T ADMINISTE RED IMMUNIZAT ION ADMINISTE RED AT TIME OF DISPENSIN G active Not Available Not Available No t Available ID NOW COVID-19 Test Kit TEST DIRECTED TODAY 03/27 completed Not Available Not Available Not Available Vitals Date Recorded Body height Body mass index (BMI) Body weight Body temperature Heart rate Respiratory rate Oxygen saturation Systolic And Diastolic Provider Name and Address Organization Details Last Updated DateTime 4 160.02 cm 34.3 kg/m2 42115.1 2 g 98.1 [degF] 68 /min 16 /min 99 % 118/72 mm[Hg] Jorge A Jimenez [place] [employer] [facility] [employer] 4 16:43:52 Date Recorded Body mass index (BMI) Body weight Provider Name and Address Organization Details Last Updated DateTime 04/09/2023 34.4 kg/m2 22343.97 g Kane Ponce MD [address] [place] [address], [facility] [address], [place], [address], [place] [employer] [facility] [employer] 04/09/2023 16:46:23 Date Recorded Body height Body temperature Heart rate Respiratory rate Oxygen saturation Systolic And Diastolic Provider Name and Address Organization Details Last Updated DateTime 4 160.02 cm 98.3 [degF] 72 /min 16 /min 99 % 120/70 mm[Hg] Jorge A Jimenez [employer] [facility] [employer] 4 16:41:43 Date Recorded Body mass index (BMI) Body height Oxygen saturation Heart rate Body temperature Body weight Systolic And Diastolic Provider Name and Address Organization Details Last Updated DateTime 2 34.3 kg/m2 162.56 cm 99 % 88 /min 98 [degF] 72792.4 7 g 124/82 mm[Hg] Not Available [facility] 08:05:35 Social History Question Answer Notes LastModified by Organizat ion Details LastModified Time Tobacco Smoking Status Never Smoker Not Available [facility] 05/22/2022 08:04:53 What Is Your Level Of Caffeine Consumption? Moderate [id number] Information not available 05/22/2022 In The 14 Days Before Symptom Onset, Have You Had Close Contact With A Laboratory-confirm ed COVID-19 While That Case Was Ill? No [id number] Information not available 05/22/2022 In The 14 Days Before Symptom Onset, Have You Had Close Contact With A Person Who Is Under Investigation For COVID-19 While That Person Was Ill? No [id number] Information not available 05/22/2022 What Type Of Diet Are You Following? REGULAR [id number] Information not available 05/22/2022 Which Illicit Or Recreational Drugs Have You Used? Marijuana [id number] Information not available 05/22/2022 Sex: Unknown Functional Status Question Answer Note LastModified by Organizat ion Details LastModified Time What is your level of alcohol consumption? None [id number] Information not available 05/22/2022 What is your exercise level? None [id number] Information not available 05/22/2022 Mental Status None recorded. Family History Nothing Reported. Medical History No medical history recorded. Gynecological History Statement/Question Response Date of Last Pap 04/12/2021 Current Control Method BCPs Date of LMP 04/04/2021 Obstetrics History GPAL:G 0 P 0 0 0 0 Immunizations Vaccine Type Date Status Note Provider Nam e and Address Organization Details Recorded Time Influenza, split virus, quadrivalent, preservative 9 completed Not Available Pending sale to [facility] 05/22/2022 08:14:42 Influenza, split virus, quadrivalent, PF 0 completed Not Available Pending sale to [facility] 05/22/2022 08:14:42 Past Encounters Encounter ID Performer Location Encounter Start Date Encounter Closed Date Diagnosis/Indication Diagnosis SNOMED-CT Code Diagnosis ICD10 Code Diagnosis IMO Codes Diagnosis Note [id number] Kane Ponce MD [facility] [address] [address] 08/11/2020 00:00:00 08/11/2020 08:42:33 [id number] Kane Ponce MD [address] [address] 04/05/2021 00:00:00 04/05/2021 17:34:06 [id number] Kane Ponce MD [address] [address] 04/11/2021 00:00:00 04/11/2021 17:59:01 [id number] Kane Ponce MD [address] [address] 03/27/2023 16:25:32 03/27/2023 17:16:54 Adult health examination 668934713 Z00.00 Obesity 151500474 E66.9 Fatigue 93639644 R53.83 Depressive disorder 3548 9007 F32.A [id number] Kane Ponce MD [address] [address] 04/04/2023 15:46:15 04/04/2023 16:43:30 [id number] Kane Ponce MD [address] [address] 04/09/2023 16:34:21 04/09/2023 16:54:37 Obesity 843772899 E66.9 Depressive disorder 3548 9007 F32.A Vitamin D deficiency 347 58260 E55.9 Health Concerns Section Related Observation LastModified by Organization Detai ls LastModified Time None Recorded Concern Status LastModified by Organization Details LastModified Time None Recorded Advance Directives Directive None Recorded Payers Insurance Date Sequence Insurance Name Policy Number Policy Montoya Covered Member ID Montoya Member ID Guarantor Name 06/29/2023 1 [facility] ON OR AFTER 09/21/20 (MEDICAID REPLACEMENT - HMO) Brooke Doan [id number] Brooke Doan Notes Date Note Type Note Provider Name and Address Organization Details Recorded Time 03/27/2023 text/html Pt is here for her annual exam. Doing overall well. Wants to get regular labs for her. C/o feeling fatigue and tired for last several months. C/o feeling down, sad for 1-2 weeks and than high and more energetic for next 1-2 weeks. Pt has tried Zoloft in the past for her mood; but it made her symptoms worse. Denies any mood swings/SI/HI. Pt has never seen any Psych for this. Kane Ponce MD [address], [place], [address], [employer] 03/27/2023 17:11:10 04/09/2023 text/html Pt is here for f/u on her annual labs. Doing overall well. Denies any new concern. C/o feeling fatigue and tired for last several months. C/o feeling down, sad for 1-2 weeks and than high and more energetic for next 1-2 weeks. Pt has tried Zoloft in the past for her mood; but it made her symptoms worse. Denies any mood swings/SI/HI. Pt has never seen any Psych for this. Kane Ponce MD [address], [place], [address], [employer] 04/09/2023 16:53:08 OBGyn Episode No OBEpisode recorded.
--- OUTSIDE RECORDS SUMMARY | 2025-03-15 10:21 | XMS_ITS | Clinical Summary ---
Author Organization [facility] [employer] [place] Address [address] [facility] [address] [address] Care Team Providers Care Professor Of English Name Role Phone Unavailable Primary Care Provider Unavailabl e Encounters Date Type Department Care Team Description 03/08/2025 External Device Data [facility] Provider, Abstract 01/11/2025 External Device Data [facility] Provider, Abstract 12/28/2024 External Device Data [facility] Provider, Abstract 12/28/2024 External Device Data [facility] Provider, Abstract 12/28/2024 External Device Data [facility] Provider, Abstract 12/21/2024 11:00 AM CDT Immunization [facility] [place] [address] [facility] [place] [address] Need for immunization against influenza (Primary Dx) from Last 3 Months Immunizations Immunization Administration Dates Next Due INFLUENZA VACCINE TRIVALENT SPLIT VIRUS, (6 MOS UP), 0.5ML (PF), IM 12/21/2024 Social History Tobacco Use Types Packs/Day Years Used Date Smoking Tobacco: Never Assessed Comments Unknown Sex and Gender Information Value Date Recorded Sex Assigned at Not on file Legal Sex Female 3:11 PM CDT Gender Identity Not on file Sexual Orientation Not on file Plan of Treatment Health Maintenance Due Date Last Done Comments HPV VACCINES (1 - 3-dose series) 12/10/2014 DTAP/TDAP/TD VACCINES (1 - Tdap) 12/10/2018 HEPATITIS B VACCINES (1 of 3 - 19+ 3-dose series) 12/10/2018 CERVICAL CANCER SCREENING 12/10/2020 HPV/Cotest (21-29) 12/10/2020 PAP SMEAR 12/10/2020 INFLUENZA VACCINE Completed 12/21/2024, , 01/20/2019
--- NOTE | 2025-03-15 10:28 | ED_ITS ---
HPI - URI/Sore Throat General Chief Complaint: Upper Respiratory Infection Stated Complaint: Cold Like , Rash Source: patient Mode of arrival: ambulatory Limitations: no limitations History of Present Illness HPI Narrative: This is a 24 y/o female that presents to the urgent care with the complaint of cough, sinus pressure, sinus congestion, sore throat, and fever for 3 days. patient states she woke this am with a rash. she did take a Sudafed for the 1st time last p.m. before bed. She had been taking NyQuil and Mucinex prior to that. She states rash is slightly itchy but not bad. She states sinus pressure is worse today. Cough is dry nonproductive. She denies any dizziness she endorses a headache. She denies any chest pain or shortness on breath denies any nausea, vomiting or diarrhea. MD elicited complaint: fever, cough, sore throat, rhinorrhea, nasal congestion and sinus pain Onset (ago): day(s) (3) Consistency: constant Severity: mild Exacerbating factors: nothing Relieving factors: nothing Context: sick contacts Treatments prior to arrival: acetaminophen and cold medicine Related Data Home Medications ?Medication ?Instructions ?Recorded ?Confirmed ?Last Taken ?Type norethindrone 1 mg-ethinyl 1 tablet PO DAILY 12/18/20 03/15/25 Unknown History estradiol 20 mcg (21)-iron 75 mg (7) tablet (Aurovela Fe 1-20 (28)) Allergies Allergy/AdvReac Type Severity Reaction Status Date / Time amoxicillin Allergy Mild Rash Verified 03/15/25 10:23 pseudoephedrine (From Allergy Mild Rash Verified 03/15/25 10:23 Sudafed) PMFSH Past Medical History Medical History Patient denies significant medical history Surgical History Surgical History No significant past surgical history Social History Social History Smoking status: Never smoker Alcohol intake: never Occupation/Education: student Gender identity (if verbalized by the patient): Female Exam Const: General: ill appearing Nutritional Appearance: well nourished Orientation/consciousness: patient oriented x3 Limitations: no limitations HENMT: Head: normal to inspection Ears: TM abnormal bulging bilateral Face/Nose/Sinus: Nasal discharge present mucoid Face and sinus: sinus tenderness frontal and maxillary Mouth: Yes Normal oral and palatal mucosa present and Yes lip normal Teeth and gingiva: dentition normal Throat: posterior oropharynx normal Eyes: Conjunctivae: conjunctivae normal Pupils: Equal, round and reactive pupils present EOM: EOMs intact bilaterally Neck: Neck: normal visual inspection and no lymphadenopathy Chest: Chest palpation & inspection: normal inspection of the chest Resp: Effort & Inspection: normal respiratory effort Auscultation: clear to auscultation bilaterally Cardio: Rate: regular rate Rhythm: regular rhythm GI: GI Palp: Yes Soft to palpation Auscultation: normal bowel sounds Back/Spine/Pelvis: Back: no CVA tenderness Skin: General skin exam: normal color Rashes: rashes noted (generealized macular rash noted. ) Wounds: no wounds Hair: normal Nails: normal Neuro: General: patient oriented x3 Cranial nerves: Yes Nystagmus not present Speech: normal speech Gait exam (Neuro): Normal gait present Extrem: General: normal to inspection and no clubbing, cyanosis or edema Psych: Mental Status: mental status grossly normal Affect: normal affect Attitude: cooperative Course Course Emergency Course: This is a 24 y/o female that presents to the urgent care with the complaint of cough, sinus pressure, sinus congestion, sore throat, and fever for 3 days. patient states she woke this am with a rash. she did take a Sudafed for the 1st time last p.m. before bed. She had been taking NyQuil and Mucinex prior to that. She states rash is slightly itchy but not bad. She states sinus pressure is worse today. Cough is dry nonproductive. She denies any dizziness she endorses a headache. She denies any chest pain or shortness on breath denies any nausea, vomiting or diarrhea. vital signs stable covid, influenza a&b, strep a ordered. Strep A negative influenza a&b negative COVID negative discussed exam findings, treatment options and follow up. discussed need for treatment. she verbalized understanding. educated patient to Increase fluids, rest, symptomatic management: - cough and cold medication per package instructions, - cough drops for sore throat and cough, - vicks vapor rub, - tyl enol and motrin for fever and body aches, soft bland foods, antibiotic as prescribed, prednisone as prescribed, take benadryl 25 mg po every 8 hours for the next 3 days. follow-up with primary care chronic 2-3 days for further evaluation and exam, -you are contantagious so avoid any crowds, immunocompromised people, infants or elderly. answered all questions to satisfaction. agreeable to plan. Level of Care: Express Care Visit Vital Signs Vital signs: Vital Signs Temperature 98.9 F 03/15/25 10:02 Pulse Rate 122 H 03/15/25 10:02 Respiratory Rate 18 03/15/25 10:02 Blood Pressure 102/59 L 03/15/25 10:02 Pulse Oximetry 100 03/15/25 10:02 Oxygen Delivery Room Air 03/15/25 10:02 Temperature 98.9 F 03/15/25 10:02 Pulse Rate 122 H 03/15/25 10:02 Respiratory Rate 18 03/15/25 10:02 Blood Pressure 102/59 L 03/15/25 10:02 Pulse Oximetry 100 03/15/25 10:02 Oxygen Delivery Room Air 03/15/25 10:02 MDM MDM Narrative Medical decision making narrative: This is a 24 y/o female that presents to the urgent care with the complaint of cough, sinus pressure, sinus congestion, sore throat, and fever for 3 days. patient states she woke this am with a rash. she did take a Sudafed for the 1st time last p.m. before bed. She had been taking NyQuil and Mucinex prior to that. She states rash is slightly itchy but not bad. She states sinus pressure is worse today. Cough is dry nonproductive. She denies any dizziness she endorses a headache. She denies any chest pain or shortness on breath denies any nausea, vomiting or diarrhea. vital signs stable covid, influenza a&b, strep a ordered. Strep A negative influenza a&b negative COVID negative discussed exam findings, treatment options and follow up. discussed need for treatment. she verbalized understanding. educated patient to Increase fluids, rest, symptomatic management: - cough and cold medication per package instructions, - cough drops for sore throat and cough, - vicks vapor rub, - tylenol and motrin for fever and body aches, soft bland foods, antibiotic as prescribed, prednisone as prescribed, take benadryl 25 mg po every 8 hours for the next 3 days. follow-up with primary care chronic 2-3 days for further evaluation and exam, -you are contantagious so avoid any crowds, immunocompromised people, infants or elderly. answered all questions to satisfaction. agreeable to plan. Differential Diagnosis Differential Diagnosis: covid, strep A, influenza, sinusitis Medical Records I have reviewed the following patient records and this information was taken into consideration when formulating the assessment and plan.: previous labs and previous clinic visits Lab Data MDM Lab Attestation statement: I personally reviewed the patient's lab results. Lab results narrative: Strep A negative influenza a&b negative COVID negative Labs: Lab Results 03/15/25 Range/Units 10:36 POC Influenza A Ag Negative (Negative) POC Influenza B Ag Negative (Negative) POC SARS CoV-2 Ag Negative (Negative) POC Grp A Strep Screen Negative (Negative) Discharge Plan Discharge Clinical Impression: Sinusitis Qualifiers: Sinusitis location: unspecified location Chronicity: acute Recurrence: non- recurrent Qualified Code(s): J01.90 - Acute sinusitis, unspecified Patient Disposition: Home Condition: Stable Instructions: Antibiotic Form, Sinusitis (ED) Additional Instructions: Increase fluids, rest, symptomatic management: - cough and cold medication per package instructions, - cough drops for sore throat and cough, - vicks vapor rub, - tylenol and motrin for fever and body aches, soft bland foods, antibiotic as prescribed prednisone as prescribed take benadryl 25 mg po every 8 hours for the next 3 days. follow-up with primary care chronic 2-3 days for further evaluation and exam -you are contantagious so avoid any crowds, immunocompromised people, infants or elderly. Patient Language: [place]se Prescriptions: New prednisone 20 mg tablet 20 mg PO BID Qty: 10 0RF azithromycin 250 mg tablet See Rx Instructions .ROUTE .COMPLEX Qty: 6 0RF Rx Instructions: For 250 mg dose pack: take 500 mg today (day 1), then 250 mg for 4 days (days 2-5) No Action norethindrone-e.estradiol-iron [Aurovela Fe 1-20 (28)] 1 mg-20 mcg (21)/75 mg (7) tablet 1 tablet PO DAILY Follow-up/Referrals: PHYSICIAN,[facility] UNDER[facility] [Primary Care Provider, Internal Medicine] Stand Alone Forms: Work/School Release IP Time of Disposition: 10:42
[2025-03-15 10:38] LABS: EDCOVIDSCREEN Negative (Negative); EDINFLUASCREEN Negative (Negative); EDINFLUBSCREEN Negative (Negative); EDSTREPNEGPOS1 Negative (Negative)
== END 2025-03-15 10:47 | disposition home or self-care (01) ==
PROVIDERS: Emergency Provider Nurse Practitioner Family
DX: J01.90 Acute sinusitis, unspecified (principal); Z20.822 Contact with and (suspected) exposure to COVID-19
CPT/HCPCS: 87426; 87804; 87880; 99213; G0463